=== PATIENT | male | born 1975 | race Caucasian/White ===

== ENCOUNTER 2023-12-28 12:50 | Emergency (ER) | payer OTHER, SELFPAY ==
[2023-12-28 12:50] VITALS: BP 149/99
--- NOTE | 2023-12-28 13:32 | ED.GENMED ---
History of Present Illness
General
Chief Complaint: Ear Problem
Source: patient
Exam Limitations: none
Time Seen by Provider: 12/28/23 13:11
Nursing documentation reviewed up to this point in time: agreed with
Travel History
Have you had any contact with someone who has COVID-19?: No
Do you have any symptoms of coronavirus? Fever > 100 degrees, chills, cough, shortness of breath, sore throat, loss of taste or smell, muscle aches, or headache?: No
History of Present Illness
History of Present Illness:
48-year-old male presents emergency department complaining of right ear hearing change, a whooshing sound, and neck pain. He had his neck adjusted by his chiropractor on 12/24/2023. He was sent to the emergency department by his primary care
physician.
Past History
Past History
ED Past Medical History: None
ED Past Surgical History: None
Social History
Tobacco: Non-smoker
Alcohol: None
Drug: None
Living: with family
Review of Systems
Review of Systems
Allergies reviewed?: Yes
All Other Systems: Not applicable
Constitutional: Reports no symptoms
EENT: Reports other (hearing change, right ear)
Respiratory: Reports no symptoms
Cardiac: Reports no symptoms
ABD/GI: Reports no symptoms
: Reports no symptoms
Musculoskeletal: Reports neck pain
Skin: Reports no symptoms
Neurological: Reports no symptoms
Endocrine: Reports no symptoms
Hematologic/Lymphatic: Reports no symptoms
Phy Exam
Physical Exam
Physical Exam:
Physical Exam
General: no apparent distress, not acutely ill
Neck: supple. no meningeal signs. normal posterior pharynx
Heart: s1/s2 regular rate and rhythm, no murmur. equal radial
pulses.
HEENT: Pupils equal round reactive to light, EOMI, TMs fortune, normal cone of light bilaterally
Lungs: no acute respiratory distress. clear bilaterally
Abdomen: normal bowel sounds. not tender. no CVAT
Neuro: alert and oriented. no focal neurological deficits cranial nerves II through XII intact
Skin: no rash
Psychiatric: well kept. interactive and cooperative
Extremities: no edema. no calf tenderness. negative homans. good distal pulses
Course
Orders/Labs/Results
Orders:
Orders
12/28/23 13:28
CT Head & Neck Angio W/wo IV Urgent
Comment:
Reason For Exam: right side neck pain hearing change chiropractor
IV Insert/Care/Rem.- Treatment PRN
12/28/23 13:41
Complete Blood Count/With Diff Urgent
Comprehensive Metabolic Panel Urgent
Abnormal Lab Results
12/28/23
13:41
RBC 4.68 L 10^6/uL
(4.70-6.10)
Glucose 144 H mg/dl
(70-99)
12/28/23 13:41
12/28/23 13:41
Vital Signs
Initial and Last Documented VS:
Initial Vital Signs
Temp Pulse Resp BP Pulse Ox
98.3 F 97 20 149/99 97
12/28/23 12:50 12/28/23 12:50 12/28/23 12:50 12/28/23 12:50 12/28/23 12:50
Last Documented Vital Signs
Temp Pulse Resp BP Pulse Ox
98.3 F 97 20 149/99 97
12/28/23 12:50 12/28/23 12:50 12/28/23 12:50 12/28/23 12:50 12/28/23 12:50
MDM/Problems Addressed
Differential Diagnosis Includes:
carotid dissection, barotrauma to ear, otitis media
MDM/Problems Addressed:
48-year-old male with tinnitus right ear. No signs of dissection. No signs of hemorrhage or tumor. Stable for discharge and follow-up with ENT.
*Radiology
Radiology exam reviewed: radiology read reviewed (CTA head and neck no acute findings, arachnoid cyst left posterior fossa)
*Pulse Oximetry
Patient hypoxic: no
*EKG
Interpreted by ED Provider?: NA
*Devops Interpretation
Rate: Devops- N/A
*Critical Care Note
Total Time (30-74mins, 75-104mins- exclusive of procedures): Not Applicable
Patient Management
Social determinants of health affecting care: Living situation
Escalation/DeEscalation of care consider admission/obs:
Admit not indicated
ED Attending Note
-
Portions of this chart may have been created with voice recognition software.� Occasional wrong word or��sound alike� substitutions may have occurred due to the inherent limitations of voice recognition software.
Discharge Plan
Departure
Patient Disposition: Home (Routine Discharge)
Date of Disposition: 12/28/23
Time of Disposition: 15:55
Patient with high blood pressure during this ER visit?: Yes
Condition: Good
Discharge Problem:
Tinnitus of right ear
Instructions: Tinnitus (ringing in the ears), BLOOD PRESSURE
Referrals:
James Purcell CRNP [Family Provider] - Call in 1-3 days for appt
Sid Ochoa MD [Active] - Call in 1-3 days for appt
Interventions
Interventions:
*Risk Screen - Suicide Last Done: 12/28/23 12:50
*General Assessment Last Done: 12/28/23 12:50
*Neglect/Abuse Screening Last Done: 12/28/23 12:50
Discharge Date and Time
Print Language: COMORAN
[2023-12-28 13:47] LABS: % Basophils 0.5 % (0-2); % Eosinophils 0.5 % (0-6); % Immature Granulocytes 0.3 % (0-0.5); % Lymphocytes 41.2 % (20.5-51.1); % Neutrophils 51.5 % (42.2-75.2); Absolute Lymphocytes 2.5 10^3/uL (1.2-3.4); Absolute Monocytes 0.4 10^3/uL (0.1-0.6); Absolute Neutrophils 3.1 10^3/uL (1.4-6.5); Hematocrit 42.1 % (39.0-52.0); Hemoglobin 14.4 g/dL (13.0-18.0); Mean Corp Hgb Conc. 34.2 g/dL (33.0-37.0); Mean Corpuscular Hgb 30.8 pg (27.0-31.0); Mean Platelet Volume 9.8 fL (7.4-10.4); Nucleated Red Blood Cells % 0 % (-); Platelet Count 230 10^3/uL (130-400); Red Blood Cell Count 4.68 10^6/uL (4.70-6.10); Red Cell Dist. Width 12.2 % (11.5-14.5)
[2023-12-28 14:02] LABS: ALT (SGPT) 47 U/L (0-50); AST (SGOT) 38 U/L (17-59); Alkaline Phosphatase 59 U/L (38-126); Blood Urea Nitrogen 10 mg/dl (9-20); Calcium 9.3 mg/dl (8.4-10.2); Carbon Dioxide 22 mmol/L (22-30); Chloride 106 mmol/L (98-107); Glucose 144 mg/dl (70-99); Potassium 3.6 mmol/L (3.5-5.1); Sodium 137 mmol/L (135-145); Total Bilirubin 0.6 mg/dl (0.2-1.3); Total Protein 6.7 g/dl (6.3-8.2); eGFR > 60.00
== END 2023-12-28 16:14 | disposition home or self-care (01) ==
LOC: EMR 12:50
PROVIDERS: EMERGENCY PHYSICIAN Emergency Medicine; FAMILY PHYSICIAN Nurse Practitioner Family
DX: H93.11 Tinnitus, right ear (principal); M54.2 Cervicalgia; G93.0 Cerebral cysts; R03.0 Elevated blood-pressure reading, without diagnosis of hypertension
CPT/HCPCS: 99285; 70496; 70498; 80053; 85025; Q9967